=== PATIENT | male | born 1960 | race African-American/Black ===

== ENCOUNTER 2018-02-22 18:26 | Emergency (ER) | payer SELFPAY ==
[2018-02-22] MEDS ORDERED: HYDROCODONE/APAP 5/325 MG TAB ONE (19:38)
--- NOTE | 2018-02-22 20:30 | ER ---
Nurse's Notes [facility] Name: Steve Dove Age: 57 yrs Sex: Male : 1960 Arrival Date: 02/22/2018 Time: 18:27 Bed 12 Private MD: None, None Diagnosis: Pain in right toe(s)-5th right toe Presentation: 02/22 18:42 Presenting complaint: Patient states: Right little toe pain after wooden pallet fell on hb foot 3 days ago. Transition of care: patient was not received from another setting of care. Onset of symptoms was February 22, 2018. Risk Assessment: Do you want to hurt yourself or someone else? Patient reports no desire to harm self or others. Care prior to arrival: None. 18:42 Method Of Arrival: Ambulatory hb 18:42 Acuity: PANCHO 4 hb 20:49 Initial Sepsis Screen: Does the patient meet any 2 criteria? No. Patient's initial rv sepsis screen is negative. Does the patient have a suspected source of infection? No. Patient's initial sepsis screen is negative. Triage Assessment: 20:46 General: Appears in no apparent distress. Pain: Complains of pain in left foot. rv 20:48 General: Behavior is calm, cooperative, restless. rv Historical: - Allergies: 18:45 No Known Allergies; hb - Home Meds: 18:45 Lisinopril Oral [Active]; hb - PMHx: 18:45 None; hb - PSHx: 18:45 None; hb - Immunization history:: Adult Immunizations up to date. - Social history:: Smoking status: Patient/guardian denies using tobacco. - Ebola Screening: : No symptoms or risks identified at this time. Screenin:46 Abuse screen: none. Nutritional screening: No deficits noted. Tuberculosis screening: rv No symptoms or risk factors identified. Fall Risk None identified. Vital Signs: 18:45 BP 177 / 104; Pulse 86; Resp 16; Temp 97.8; Pulse Ox 98% on R/A; Weight 95.25 kg; hb Height 5 ft. 9 in. (175.26 cm); Pain 10/10; 20:50 BP 160 / 89; Pulse 84; Resp 16; Pulse Ox 99% ; Pain 3/10; rv 18:45 Body Mass Index 31.01 (95.25 kg, 175.26 cm) hb ED Course: 18:27 Patient arrived in ED. sb2 18:27 None, None is Private Physician. sb2 18:44 Triage completed. hb 18:44 Arm band placed on right wrist. hb 19:16 Kong Cummings NP is PHCP. pm1 19:16 Damion Aguilar MD is Attending Physician. pm1 19:59 Foot Right 3 View XRAY In Process Unspecified. EDMS 20:48 No provider procedures requiring assistance completed. Patient did not have IV access rv during this emergency room visit. 20:49 Patient has correct armband on for positive identification. rv Administered Medications: 19:30 Drug: [place] 5 mg-325 mg 1 tabs Route: PO; rv 20:44 Follow up: Response: No adverse reaction rv Outcome: 20:29 Discharge ordered by . pm1 20:49 Discharged to home ambulatory. rv 20:49 Condition: good 20:49 Discharge instructions given to patient, Prescriptions given X 1. 20:50 Patient left the ED. rv Signatures: Dispatcher [employer] EDMS Kong Cummings NP ON SITE SERVICES SPECIALIST pm1 Yani Hughes, RN RN Maddi Brady sb2 Gautam Florez RN RN rv
--- NOTE | 2018-02-22 20:30 | EDPHYS ---
Physician Documentation [facility] Name: Steve Dove Age: 57 yrs Sex: Male : 1960 Arrival Date: 02/22/2018 Time: 18:27 Bed 12 Private MD: None, None ED Physician Damion Aguilar HPI: 02/22 20:00 This 57 yrs old Black Male presents to ER via Ambulatory with complaints of Toe Injury. pm1 20:00 The patient presents with a crush injury, wooden palate , pain. The complaints affect pm1 the right foot. Context: The problem was sustained at work, resulted from a heavy object falling, the patient can fully bear weight, the patient is able to ambulate. Onset: The symptoms/episode began/occurred 3 day(s) ago. Modifying factors: The symptoms are alleviated by nothing, the symptoms are aggravated by weight bearing. Associated signs and symptoms: Pertinent negatives: fever, numbness, tingling. Severity of symptoms: in the emergency department the symptoms are unchanged. The patient has not experienced similar symptoms in the past. Historical: - Allergies: 18:45 No Known Allergies; hb - Home Meds: 18:45 Lisinopril Oral [Active]; hb - PMHx: 18:45 None; hb - PSHx: 18:45 None; hb - Immunization history:: Adult Immunizations up to date. - Social history:: Smoking status: Patient/guardian denies using tobacco. - Ebola Screening: : No symptoms or risks identified at this time. ROS: 20:00 MS/extremity: Positive for pain, of the right fifth toe, Negative for decreased range pm1 of motion, deformity. 20:00 Constitutional: Negative for fever, chills, and weight loss, Eyes: Negative for injury, pain, redness, and discharge, ENT: Negative for injury, pain, and discharge, Neck: Negative for injury, pain, and swelling, Cardiovascular: Negative for chest pain, palpitations, and edema, Respiratory: Negative for shortness of breath, cough, wheezing, and pleuritic chest pain, Abdomen/GI: Negative for abdominal pain, nausea, vomiting, diarrhea, and constipation, Back: Negative for injury and pain, Skin: Negative for injury, rash, and discoloration, Neuro: Negative for headache, weakness, numbness, tingling, and seizure. Exam: 20:00 Constitutional: This is a well developed, well nourished patient who is awake, alert, pm1 and in no acute distress. Head/Face: Normocephalic, atraumatic. Neck: Trachea midline, no thyromegaly or masses palpated, and no cervical lymphadenopathy. Supple, full range of motion without nuchal rigidity, or vertebral point tenderness. No Meningismus. Chest/axilla: Normal chest wall appearance and motion. Nontender with no deformity. No lesions are appreciated. Cardiovascular: Regular rate and rhythm with a normal S1 and S2. No gallops, murmurs, or rubs. Normal PMI, no JVD. No pulse deficits. Respiratory: Lungs have equal breath sounds bilaterally, clear to auscultation and percussion. No rales, rhonchi or wheezes noted. No increased work of breathing, no retractions or nasal flaring. Abdomen/GI: Soft, non-tender, with normal bowel sounds. No distension or tympany. No guarding or rebound. No evidence of tenderness throughout. Back: No spinal tenderness. No costovertebral tenderness. Full range of motion. Skin: Warm, dry with normal turgor. Normal color with no rashes, no lesions, and no evidence of cellulitis. 20:00 Musculoskeletal/extremity: Extremities: grossly normal except: noted in the tenderness at tip of right fifth toe: 20:00 Neuro: Orientation: is normal, Motor: moves all fours. Vital Signs: 18:45 BP 177 / 104; Pulse 86; Resp 16; Temp 97.8; Pulse Ox 98% on R/A; Weight 95.25 kg; hb Height 5 ft. 9 in. (175.26 cm); Pain 10/10; 20:50 BP 160 / 89; Pulse 84; Resp 16; Pulse Ox 99% ; Pain 3/10; rv 18:45 Body Mass Index 31.01 (95.25 kg, 175.26 cm) hb MDM: 19:19 Patient medically screened. pm1 20:27 Data reviewed: vital signs. Data interpreted: Pulse oximetry: on room air is 98 %. pm1 Interpretation: normal. Counseling: I had a detailed discussion with the patient and/or guardian regarding: the historical points, exam findings, and any diagnostic results supporting the discharge/admit diagnosis, radiology results, the need for outpatient follow up, to return to the emergency department if symptoms worsen or persist or if there are any questions or concerns that arise at home. 02/22 19:20 Order name: Foot Right 3 View XRAY; Complete Time: 03:17 pm1 02/22 20:30 Order name: Post-op shoe pm1 Administered Medications: 19:30 Drug: [place] 5 mg-325 mg 1 tabs Route: PO; rv 20:44 Follow up: Response: No adverse reaction rv Disposition: 02/22/18 20:29 Discharged to Home. Impression: Pain in right toe(s) - 5th right toe. - Condition is Stable. - Discharge Instructions: Foot Pain. - Prescriptions for Tylenol- Codeine #3 300-30 mg Oral Tablet - take 2 tablets by ORAL route every 6 hours As needed; 20 tablet. - Medication Reconciliation Form, Thank You Letter, Antibiotic Education form. - Follow up: Emergency Department; When: As needed; Reason: Worsening of condition. Follow up: Private Physician; When: 2 - 3 days; Reason: Recheck today's complaints, Continuance of care, Re-evaluation by your physician. - Problem is new. - Symptoms have improved. Signatures: Dispatcher [employer] EDMS Kong Cummings NP ANIMAL CARE TECHNICIAN pm1 Yani Hughes RN RN Gautam Florez RN RN rv Corrections: (The following items were deleted from the chart) 20:50 20:29 02/22/2018 20:29 Discharged to Home. Impression: Pain in right toe(s) - 5th right rv toe. Condition is Stable. Forms are Medication Reconciliation Form, Thank You Letter, Antibiotic Education, Prescription Opioid Use. Follow up: Emergency Department; When: As needed; Reason: Worsening of condition. Follow up: Private Physician; When: 2 - 3 days; Reason: Recheck today's complaints, Continuance of care, Re-evaluation by your physician. Problem is new. Symptoms have improved. pm1 02/23 03:17 02/22 20:00 The complaints affect the left foot, pm1 pm1
--- NOTE | 2018-02-22 20:54 | RAD REPORT ---
EXAM DESCRIPTION: RAD - Foot Right 3 View - 02/22/2018 7:59 pm CLINICAL HISTORY: Trauma to the foot, left fifth toe pain COMPARISON: None. FINDINGS: No fracture, dislocation or periosteal reaction. No acute bone process identified. There a re small accessory ossicles along the medial margin of each metatarsal head. Small plantar and modera te Achilles spurs are present No air or foreign body in the soft tissues. IMPRESSION: No fracture or acute bone finding identifiable. Small plantar spur and moderate Achilles spur.
== END 2018-02-22 20:50 | disposition home or self-care (01) ==
LOC: ER 18:26
DX: M79.674 Pain in right toe(s) (principal)
CPT/HCPCS: 99283